=== PATIENT | female | born 1985 | race Asian ===

== ENCOUNTER 2017-08-04 19:55 | Emergency (ER) | payer SELFPAY ==
[~2017-08-04] VITALS: Ht 160 cm; Wt 87.0 kg
[2017-08-04 20:22] VITALS: Ht 160 cm; Wt 87.0 kg
[2017-08-04] MEDS ORDERED: ACETAMINOPHEN 500 MG TAB PO STA (22:25)
[2017-08-04] MEDS ORDERED: IBUPROFEN 600 MG TAB PO ONE (22:30)
[2017-08-04] MEDS ORDERED: IBUP-1542 PO (22:30)
[2017-08-04] MEDS ORDERED: ACET500C5 PO (22:30)
[2017-08-04] MEDS ORDERED: OSLT75C PO (22:30)
[2017-08-04] MEDS ORDERED: GUAI473L22 PO (22:30)
--- NOTE | 2017-08-04 22:45 | ERD ---
ER Documentation Chief Complaint Chief Complaint Pt reports cough, fever, [place] since this morning HPI 32-year-old female presents to emergency department for complaints of cough fever body aches headaches that started this morning. Patient has been on dry cough, does not cough up any phlegm or blood. Patient does not have any shortness of breath or wheezing. Patient has been having runny nose nasal congestion with green nasal discharge. Patient does not have any sore throat or ear pain. Patient took ibuprofen and Tylenol home with mild relief. Patient without any sick contacts. ROS All systems reviewed and are negative except as per history of present illness. Medications Home Meds Active Scripts Acetaminophen* (Tylophen*) 500 Mg Capsule, 1 CAP PO Q6H Y for PAIN AND OR ELEVATED TEMP, #20 CAP Prov:FARRAH FLOWERS NP 08/04/17 Ibuprofen* (Motrin*) 600 Mg Tab, 600 MG PO Q6H Y for PAIN AND OR ELEVATED TEMP, #30 TAB Prov:FARRAH FLOWERS NP 08/04/17 Guaifenesin-Codeine Phosphate* (Guaifenesin* AC Cough Syrup) 473 Ml Liquid, 10 ML PO Q4H Y for COUGH, #120 ML Prov:FARRAH FLOWERS NP 08/04/17 Oseltamivir Phosphate* (Tamiflu*) 75 Mg Capsule, 75 MG PO BID for 5 Days, CAP Prov:FARRAH FLOWERS NP 08/04/17 Allergies Allergies: Coded Allergies: No Known Allergy (Unverified , 08/04/17) PMhx/Soc Medical and Surgical Hx: pt denies Medical Hx History of Surgery: Yes (RIGHT OVARY REMOVED) Anesthesia Reaction: No Hx Alcohol Use: No Hx Substance Use: No Hx Tobacco Use: No Smoking Status: Former smoker FmHx Family History: No coronary disease, No diabetes, No other Physical Exam Vitals Vital Signs Date Time Temp Pulse Resp B/P Pulse Ox O2 Delivery O2 Flow Rate FiO2 08/04/17 23:08 100.6 104 20 136/74 98 Room Air 08/04/17 20:22 103.0 114 16 135/81 98 Physical Exam GENERAL: The patient is well developed and appropriate for usual state of health, in no apparent distress. CHEST: Clear to auscultation bilaterally. There are no rales, wheezes or rhonchi. HEART: Regular rate and rhythm. No murmurs, clicks, rubs or gallops. No S3 or S4. ABDOMEN: Soft, nontender and nondistended. Good bowel sounds. No rebound or guarding. No gross peritonitis. No gross organomegaly or masses. No Ramirez sign or McBurney point tenderness. BACK: No midline or flank tenderness. EXTREMITIES: Equal pulses bilaterally. There is no peripheral clubbing, cyanosis or edema. No focal swelling or erythema. Full range of motion. Grossly neurovascularly intact. NEURO: Alert and oriented. Cranial nerves 2-12 intact. Motor strength in all 4 extremities with 5/5 strength. Sensation grossly intact. Normal speech and gait. SKIN: There is no apparent rash or petechia. The skin is warm and dry. HEMATOLOGIC AND LYMPHATIC: There is no evidence of excessive bruising or lymphedema. No gross cervical, axillary, or inguinal lymphadenopathy. Results 24 hrs Current Medications Medications (Trade) Dose Ordered Sig/Michael Route PRN Reason Start Time Stop Time Status Last Admin Dose Admin Ibuprofen (Motrin) 600 mg ONCE ONCE PO 08/04/17 22:30 08/04/17 22:31 DC 08/04/17 22:30 Acetaminophen (Tylenol Tab) 500 mg ONCE STAT PO 08/04/17 22:25 08/04/17 22:26 DC 08/04/17 22:30 Patient was given medicines for fever control here in the emergency department. After treatment, patient temperature improved and lower. Patient appears well and is hemodynamically stable. Procedures/MDM Medical Decision Making: Patient symptoms are most likely consistent with influenza. There is low suspicion for Pneumonia at this time since patients lungs sounds are clear, patient O2 saturation is normal and patient doesnt show any respiratory distress. Radiology exams not indicated at this time. There is low suspicion for other cardiopulmonary emergencies at this time such as CHF, Pulmonary Embolism, Pneumothorax, Aortic Aneurysm or any other cardiopulmonary emergencies at this time. There is low suspicion for sepsis. Patient appears well and is hemodynamically stable. Fever is controlled with medicines. Disposition: Home. Condition: Stable Prescriptions: Tamiflu, Tylenol ibuprofen guaifenesin with codeine Instructions: Patient is advised to take medications as prescribed. Patient is advised to rest. Patient advised to increase fluid intake, do humidifier at home and if possible, do salt water gargles. Patient is advised that if symptoms are worse, shortness of breath, uncontrolled fever, stridor, vomiting, worst signs and symptoms to return to emergency department immediately. Otherwise, patient is advised to follow up with primary doctor in 5-7 days. Disclaimer: Inadvertent spelling and grammatical errors are likely due to EHR/ dictation software use and do not reflect on the overall quality of patient care. Also, please note that the electronic time recorded on this note does not necessarily reflect the actual time of the patient encounter. Departure Diagnosis: Primary Impression: Flu-like symptoms Condition: Stable Patient Instructions: Influenza (Adult) FARRAH FLOWERS NP Aug 04, 2017 22:45
[2017-08-04 23:08] VITALS: BP 136/74; PULSE 104; RESP 20; TEMP 100.6
== END 2017-08-04 23:10 | disposition home or self-care (01) ==
LOC: FTE 19:55
DX: R05 Cough (principal); R50.9 Fever, unspecified; R51 Headache; Z87.891 Personal history of nicotine dependence
CPT/HCPCS: 99283

== ENCOUNTER 2018-09-17 22:21 | Emergency (ER) | payer BC, OTHER ==
[~2018-09-17] VITALS: Wt 90.2 kg
[~2018-09-17 22:21] MED LIST: ACET500C5 PO; GUAI473L22 PO; IBUP-1542 PO; OSLT75C PO
[2018-09-17 22:24] VITALS: BP 137/92; PULSE 82; RESP 18
[2018-09-17] MEDS ORDERED: ACETAMINOPHEN 325 MG TAB PO ONE (22:30)
[2018-09-17] MEDS ORDERED: LIDOCAINE 1% (MDV) 20 ML INJ SC ONE (22:30)
[2018-09-17] MEDS ORDERED: CEPH-443 PO (22:40)
[2018-09-17] MEDS ORDERED: IBUP-1542 PO (22:40)
--- NOTE | 2018-09-17 22:43 | ERD ---
ER Documentation Chief Complaint Chief Complaint R GREAT TOE NAIL PAIN HPI 33-year-old female presents with pain and redness of the right big toe near the nail in the medial aspect. She denies any history of trauma. Denies any previous ingrown toenail. Symptoms started earlier today. ROS All systems reviewed and are negative except as per history of present illness. Medications Home Meds Active Scripts Cephalexin* (Keflex*) 500 Mg Capsule, 500 MG PO QID for 7 Days, CAP Prov:RAMSES CELESTE MD 09/17/18 Ibuprofen* (Motrin*) 600 Mg Tab, 600 MG PO Q6, #20 TAB Prov:RAMSES CELESTE MD 09/17/18 Acetaminophen* (Tylophen*) 500 Mg Capsule, 1 CAP PO Q6H PRN for PAIN AND OR ELEVATED TEMP, #20 CAP Prov:FARRAH FLOWERS NP 08/04/17 Ibuprofen* (Motrin*) 600 Mg Tab, 600 MG PO Q6H PRN for PAIN AND OR ELEVATED TEMP, #30 TAB Prov:FARRAH FLOWERS NP 08/04/17 Guaifenesin-Codeine Phosphate* (Guaifenesin* AC Cough Syrup) 473 Ml Liquid, 10 ML PO Q4H PRN for COUGH, #120 ML Prov:FARRAH FLOWERS NP 08/04/17 Oseltamivir Phosphate* (Tamiflu*) 75 Mg Capsule, 75 MG PO BID for 5 Days, CAP Prov:FARRAH FLOWERS NP 08/04/17 Allergies Allergies: Coded Allergies: No Known Allergy (Unverified , 08/04/17) PMhx/Soc History of Surgery: Yes (RIGHT OVARY REMOVED) Anesthesia Reaction: No Hx Alcohol Use: No Hx Substance Use: No Hx Tobacco Use: No Smoking Status: Never smoker FmHx Family History: No diabetes, No coronary disease, No other Physical Exam Vitals Vital Signs Date Temp Pulse Resp B/P (MAP) Pulse Ox O2 O2 Flow FiO2 Time Delivery Rate 09/17/18 98.4 82 18 137/92 98 22:24 (107) Physical Exam Const: No acute distress Head: Atraumatic Eyes: Normal Conjunctiva ENT: Normal External Ears, Nose and Mouth. Neck: Full range of motion. No meningismus. Resp: Clear to auscultation bilaterally Cardio: Regular rate and rhythm, no murmurs Abd: Soft, non tender, non distended. Normal bowel sounds Skin: No petechiae or rashes Back: No midline or flank tenderness Ext: No cyanosis, or edema. Right big toe shows ingrown portion of nail in the medial aspect. There is some surrounding redness without discharge, significant swelling. Is no bony tenderness or deformities. Neur: Awake and alert Psych: Normal Mood and Affect Results 24 hrs Current Medications Medications Dose Sig/Michael Start Time Status Last (Trade) Ordered Route PRN Stop Time Admin Dose Reason Admin 650 mg ONCE ONCE 09/17/18 DC Acetaminophen PO 22:30 09/17/18 (Tylenol 22:31 Tab) Lidocaine 20 ml ONCE ONCE 09/17/18 DC (Xylocaine SC 22:30 09/17/18 1% (Mdv) 20 22:31 ml) Procedures/MDM Patient presents with signs and symptoms of ingrown toenail in the right big toe. Avulsion was offered but patient declined due to fear of needles. She is requesting antibiotics. We will treat with Keflex, ibuprofen, warm soaks, primary care follow-up and return precautions for worsening pain, redness, new worsening symptoms. No current signs or symptoms of osteomyelitis, ten osynovitis, fracture, dislocation, additional complications. Departure Diagnosis: Primary Impression: Ingrown toenail Condition: Stable Patient Instructions: Ingrown Toenail, Infected (Abx Only) Additional Instructions: Warm soaks and can consider pedicure. Recheck for worsening redness, pain for removal of ingrown nail or with primary care doctor. You have declined treatment here today. RAMSES CELESTE MD Sep 17, 2018 22:42
== END 2018-09-17 22:50 | disposition home or self-care (01) ==
LOC: FTE 22:21
DX: L60.0 Ingrowing nail (principal)
CPT/HCPCS: 99283